=== PATIENT | male | born 1940 | race Caucasian/White ===

== ENCOUNTER 2016-12-14 13:49 | Inpatient (IN) | payer MEDICARE, MEDICAID ==
[~2016-12-14] VITALS: Ht 182.9 cm; Wt 57.8 kg
--- NOTE | 2016-12-14 14:00 | NUR ---
Recieved patient to ed bed 03, patient was bb orivate ems from [facility] for s/p unwitnessed fall. Per report, pt was found on the floor. Pt is a chronic trach/vent dependent. unknown complaints. pt is non verbal, unable to provide informations. Placed on cardiac and pox monitor. will continue to monitor
--- NOTE | 2016-12-14 14:13 | NUR ---
Dr. Chandra at bedside for evaluation, patient is not talking, unable to get informations from the patient, pen and paper provided, questions written in kazakh and samoan and showed to the patient, patient has no response.
--- NOTE | 2016-12-14 14:17 | NUR ---
Called [facility] and spoke to Nathan RN, per staff patient is confused w/ h/o alzheimer's dse, dementia, non verbal, unable to communicate, will do eye tracking but that's it. Dr. Chandra notified.
[2016-12-14 14:19] VITALS: BP 110/72
--- NOTE | 2016-12-14 14:22 | NUR ---
RT NOTE PT PLACED ON VENT ON SETTINGS ENDORSED BY TRANSPORT RT AC 14 500 +5 40%. AMBU BAG AT BEDSIDE. ALARMS SET PER PROTOCOL AND AUDIBLE. VENT PLUGGED IN TO RED OUTLET. PT APPEARS STABLE. WILL CONTINUE TO MONITOR. Addendum: 12/14/16 at 1424 by CHELA SANABRIA RT Amended: Links added.
--- NOTE | 2016-12-14 15:05 | NUR ---
CXR in progress at bedside.
[2016-12-14 15:10] LABS: BASOPHILS % (AUTO) 0.3 % (0.0-2.0); EOSINOPHILS # (AUTO) 0.1 /CMM (0.0-0.7); EOSINOPHILS % (AUTO) 1.1 % (0.0-6.0); HEMATOCRIT 31 % (39-51); HEMOGLOBIN 9.7 g/dL (13.5-17.5); LYMPHOCYTES # (AUTO) 1.3 /CMM (0.8-4.8); LYMPHOCYTES % (AUTO) 13.6 % (20.0-44.0); MEAN CORPUSCULAR HEMOGLOBIN 29 PG (26.0-33.0); MEAN CORPUSCULAR HGB CONC 32 g/dl (31.0-36.0); MEAN CORPUSCULAR VOLUME 90 fL (80-96); MONOCYTES # (AUTO) 0.8 /CMM (0.1-1.30); NEUTROPHILS # (AUTO) 7.3 /CMM (1.8-8.9); PLATELET COUNT (AUTO) 294 /CMM (150-450); RDW COEFFICIENT OF VARIATION 23.6 (11.5-15.0); RED BLOOD CELL COUNT(AUTO) 3.38 MIL/uL (4.5-6.0); WHITE BLOOD COUNT (AUTO) 9.5 K/uL (4.3-11.0)
[2016-12-14 15:20] LABS: CALCIUM, SERUM 8.4 mg/dL (8.5-10.1); CREATININE 0.9 mg/dL (0.6-1.3); POTASSIUM 4.6 mmol/L (3.5-5.1)
[2016-12-14 15:24] LABS: INR 1.12 (0.87-1.13); PROTHROMBIN TIME 11.8 SECS (9.5-12.7)
[2016-12-14 15:26] LABS: ALBUMIN 2.4 g/dL (3.4-5.0); BILIRUBIN,DIRECT 0.2 mg/dL (0.0-0.2); BILIRUBIN,TOTAL 0.5 mg/dL (0.2-1.0); TOTAL PROTEIN, SERUM 5.9 g/dL (6.4-8.2)
[2016-12-14 15:40] LABS: TROPONIN I 0.075 ng/mL (0.00-0.056)
[2016-12-14 16:02] LABS: LACTIC ACID 1.6 mmol/L (0.4-2.0)
[2016-12-14 16:15] VITALS: BP 144/78
[2016-12-14 16:31] LABS: ABG BASE EXCESS 1.9 mmol/L; ABG OXYGEN SATURATION 98.1 % (92.0-98.5); ABG PCO2 37.5 mmHg (35.0-45.0); ABG PH 7.456 (7.350-7.450); ABG PO2 148.9 mmHg (75.0-100.0); ABG TOTAL HEMOGLOBIN 9.5 G/dL (13.5-18.0); AaDO2 93.2 mmHg; COHb 0.6 % (0.5-1.5); MetHb 0.8 % (0.0-1.5); O2Hb 96.7 % (94.0-97.0); PEEP,BG 5 cm H2O; SITE, ABG Right Radial; VENT MODE, BG AC 14 500 +5 40%; VT, ABG 500 mL
[2016-12-14] MEDS ORDERED: ASPIRIN 325 MG TABLET PO ONE (17:00)
--- NOTE | 2016-12-14 17:23 | NUR ---
tele [phone]
[2016-12-14] MEDS ORDERED: ASPIRIN 325 MG TABLET ONE (17:36)
--- NOTE | 2016-12-14 17:37 | NUR ---
Jaylyn will call back in 10 minutes.
--- NOTE | 2016-12-14 17:55 | NUR ---
Report given to Jaylyn PATTERSON for cont of care
[2016-12-14] MEDS ORDERED: HYDR-3326 GT (18:35)
[2016-12-14] MEDS ORDERED: CRAN3875 GT (18:35)
[2016-12-14] MEDS ORDERED: ACET-2070 GT (18:35)
[2016-12-14] MEDS ORDERED: BISA10SU8 RC (18:39)
[2016-12-14] MEDS ORDERED: MAGN400O6 GT (18:39)
[2016-12-14] MEDS ORDERED: NA P133E RC (18:39)
[2016-12-14] MEDS ORDERED: DOCU50LI GT (18:39)
[2016-12-14 18:40] VITALS: BP 113/68
--- NOTE | 2016-12-14 18:40 | NUR ---
RN NOTES RECEIVED PATIENT FROM ER, ON [facility] VENT WITH BREATHING NORMAL, EVEN AND UNLABORED. NO SOB NOTED. NO ACUTE DISTRESS NOTED. VENT SETTING REVIEWED AND VERIFIED. TOLERATED WELL. TELE MONITOR REVEALS CONTROLLED A-FIB, HR=72. IV R HAND 20G IS PATENT AND INTACT, NO INFILTRATION NOTED. GT IS INTACT AND CLAMPED. BOWEL SOUND PRESENT. PULSES PRESENT. KEPT CLEAN, DRY AND COMFORTABLE. ALL NEEDS ATTENDED. SAFETY MEASURE OBSERVED. CALL LIGHT WITH IN REACH. WILL CONT TO MONITOR.
[2016-12-14] MEDS ORDERED: LEVE500S GT (18:46)
[2016-12-14] MEDS ORDERED: ENOX30DI5 SQ (18:46)
[2016-12-14] MEDS ORDERED: FAMO20TA8 GT (18:46)
[2016-12-14] MEDS ORDERED: CARV12.52 GT (18:46)
[2016-12-14] MEDS ORDERED: NUT.237L30 GT (18:46)
[2016-12-14] MEDS ORDERED: ASPI81TA2 GT (18:46)
[2016-12-14] MEDS ORDERED: PRAV10TA40 GT (18:51)
[2016-12-14] MEDS ORDERED: MEMA10TA GT (18:51)
[2016-12-14] MEDS ORDERED: SPIR25TA4 GT (18:51)
--- NOTE | 2016-12-14 19:30 | NUR ---
FIRE SAFETY MANAGER INITIAL NOTE RECEIVED REPORT FROM RUY PATTERSON. PT IN BED CHRONIC VENT TRACH, TOLERATING CURRENT VENT SETTINGS. PT OPENS EYES, ABLE TO NOD HEAD WHEN SPOKEN TO IN JAPANESE BUT UNABLE TO FOLLOW COMMANDS. PT IS RESTRAINED, DUE TO PULLING IV'S AND LINES. LUNG SOUNDS CLEAR AT UPPER BASES AND DIMINISHED AT LOWER BASES. BOWEL SOUNDS PRESENT, GT INTACT AND CLAMPED. INCONTINENT. PULSES PRESENT IN ALL EXTREMITIES. IV PATENT AND INTACT. BED IN LOW LOCKED POSITION. WILL CONTINUE TO MONITOR. MEDICATION RECONCILIATION UPDATED WITH SNF PAPERWORK, FAXED TO PHARMACY.
[2016-12-14] MEDS ORDERED: OXCA150T5 GT (19:38)
[2016-12-14] MEDS ORDERED: OXCA300T4 GT (19:38)
[2016-12-14 20:00] VITALS: BP 103/58
[2016-12-14] MEDS ORDERED: MAGNESIUM HYDROXIDE 30 ML UDC GT PRN (20:30)
[2016-12-14] MEDS ORDERED: BISACODYL SUPP (10 MG) 10 MG/SUPP.RECT SUPP.RECT RC PRN (20:30)
[2016-12-14] MEDS ORDERED: NA PHOS,M-B/NA PHOS,DI-BA 1 EA ENEMA RC PRN (20:30)
[2016-12-14] MEDS ORDERED: CARV6.25 PO (21:27)
[2016-12-14] MEDS ORDERED: Medication Not On Formulary EA (Pravastatin Sodium 10 MG) GT SCH (22:00)
[2016-12-14] MEDS: LEVETIRACETAM SOL (5 ML) 100 MG/ML UDC GT SCH (22:10)
[2016-12-14] MEDS: ATORVASTATIN 10 MG TABLET PO SCH (22:10)
[2016-12-14] MEDS: GLYTROL 1,000 ML BAG GT PRN (23:41)
[2016-12-15] VITALS (7 sets, daily range): BP systolic 103–114; BP diastolic 58–69
[2016-12-15 06:27] LABS: BASOPHILS % (AUTO) 0.2 % (0.0-2.0); EOSINOPHILS % (AUTO) 0.4 % (0.0-6.0); HEMATOCRIT 29 % (39-51); HEMOGLOBIN 9.1 g/dL (13.5-17.5); LYMPHOCYTES # (AUTO) 1.3 /CMM (0.8-4.8); LYMPHOCYTES % (AUTO) 12.1 % (20.0-44.0); MEAN CORPUSCULAR HEMOGLOBIN 28 PG (26.0-33.0); MEAN CORPUSCULAR HGB CONC 32 g/dl (31.0-36.0); MEAN CORPUSCULAR VOLUME 89 fL (80-96); MONOCYTES % (AUTO) 9.3 % (2.0-12.0); NEUTROPHILS # (AUTO) 8.3 /CMM (1.8-8.9); PLATELET COUNT (AUTO) 350 /CMM (150-450); RDW COEFFICIENT OF VARIATION 24.3 (11.5-15.0); RED BLOOD CELL COUNT(AUTO) 3.21 MIL/uL (4.5-6.0); WHITE BLOOD COUNT (AUTO) 10.7 K/uL (4.3-11.0)
[2016-12-15 06:45] LABS: CALCIUM, SERUM 8.7 mg/dL (8.5-10.1); CREATININE 0.8 mg/dL (0.6-1.3); POTASSIUM 4.6 mmol/L (3.5-5.1)
--- NOTE | 2016-12-15 07:30 | NUR ---
NUT STEAMER INITIAL NOTES RECEIVED PT AND REPORT FROM PM NURSE, PT IN BED, ON [facility] VENT SETTINGS ORDERED BY SAT ABOVE 97%, NO SOB OR DISTRESS NOTED, A&O X1, SOFT BILATERAL WRIST RESTRAINTS INTACT, ON TELE MON A-FIB WITH HR 73 CONTROLLED, ON GTUBE FEEDING GLYTROL @ 50 CC/HR, NO RESIDUAL NOTED, RT HAND 20 G INTACT NO INFILTRATION OR INFECTION, ALL SAFETY MEASURES INITIATED, SIDE RAILS X2, BED LOW AND LOCKED, CALL LIGHT WITHIN REACH, WILL CONTINUE TO MONITOR.
--- NOTE | 2016-12-15 08:27 | NUR ---
RT PATIENT REC'D TRACHED ON [facility] VENT WITH SETTINGS SET PER MD ORDER TOLERATED WELL. PATIENT NON RESPONSIVE AND APPEARS COMFORTABLE. VENT ALARMS SET + AUDIBLE. SX'D WITH SMALL AMT PALE SEMITHICK SECRETIONS. B/S COARSE. AMBU BAG AT HOB Addendum: 12/15/16 at 0827 by YAHIR DOLL RT Amended: Links added.
[2016-12-15] MEDS ORDERED: OXCARBAZEPINE 150 MG TABLET GT SCH ×2 (09:00)
[2016-12-15] MEDS: DOCUSATE SODIUM LIQ 100 MG/10 ML UDC GT SCH (09:04)
[2016-12-15] MEDS: LEVETIRACETAM SOL (5 ML) 100 MG/ML UDC GT SCH ×2 (09:04→21:20)
[2016-12-15] MEDS: ASPIRIN 81 MG TAB.CHEW GT SCH (09:04)
[2016-12-15] MEDS: MEMANTINE HCL 5 MG TABLET GT SCH ×2 (09:04→17:28)
[2016-12-15] MEDS: SPIRONOLACTONE 25 MG TABLET GT SCH (09:05)
[2016-12-15] MEDS: ENOXAPARIN SODIUM 30 MG/0.3 ML DISP.SYRIN SQ SCH (09:05)
[2016-12-15] MEDS: FAMOTIDINE (20 MG) 20 MG TABLET GT SCH ×2 (09:05→17:28)
[2016-12-15] MEDS: Z GUARD REMEDY 2 OZ OINT TP SCH (09:11)
--- NOTE | 2016-12-15 09:30 | NUR ---
DAMAGE ASSESSOR NOTES SPOKE WITH MD DR REGALADO AND HE STATED NOT GIVE TRILEPTAL NEITHER ONE, MEDICATION ERROR, WILL NOT GIVE MEDICATION.
--- NOTE | 2016-12-15 21:08 | NUR ---
RN INITIAL NOTE RECEIVED PT IN BED. PT SHOW NO SIGNS OF DISTRESS, OR DISCOMFORT. PT IS SLEEPING, BUT IS AROUSABLE, OPENING EYES INTERMITTENTLY. PT IS VENTED, TRACH PORTEX #8, TOLERATING CURRENT VENT SETTINGS WELL AT AC:14 TV:500 FIO2 40% AND PEEP 5. PT IS RESTRAINED, DUE TO PULLING IV'S AND LINES. DIMINISHED AT LOWER BASES. BOWEL SOUNDS PRESENT, GT INTACT/PATENT W/ NO RESIDUAL, RUNNING AT 60ML/HR. IV PATENT AND INTACT. BED IN LOW LOCKED POSITION.CALL LIGHT IS WITHIN EASY REACH. WILL CONTINUE TO MONITOR AND FOLLOW MD ORDERS.
[2016-12-15] MEDS: CARVEDILOL 3.125 MG TABLET GT SCH (21:19)
[2016-12-15] MEDS: ATORVASTATIN 10 MG TABLET PO SCH (21:19)
[2016-12-16] VITALS (7 sets, daily range): BP systolic 90–119; BP diastolic 51–69
[2016-12-16] MEDS ORDERED: GLYTROL 1,000 ML BAG GT PRN (03:00)
[2016-12-16] MEDS: GLYTROL 1,000 ML BAG GT PRN ×2 (03:00→22:01)
--- NOTE | 2016-12-16 06:12 | NUR ---
RN CLOSING NOTES: PT IS STABLE W/NO CHANGES THROUGHOUT THE SHIFT. PT TOLERATING FEEDING WELL, NO RESIDUAL. PT TOLERATED VENT AND SETTINGS WELL. TELE READING V-PACING IN 70'S. NO SIGN OR SYMPTOMS OF DISCOMFORT OR DISTRESS DURING SHIFT. MD ORDERS FOLLOWED, PT TURNED AND REPOSITIONED Q2H AND PRN. MAINTAINED SAFETY AND COMFORT MEASURES. PT IS CURRENTLY RESTING COMFORTABLE WITH CALL LIGHT IN EASY REACH. WILL ENDORSE TO NEXT SHIFT FOR PATIENT TRISH.
--- NOTE | 2016-12-16 07:20 | NUR ---
RN INITIAL NOTES: Rec'd pt asleep on bed, HOB elevated, not in any distress. Pt on MV via Trache Portex 8 w/ ff settings: AC 14, TV 500, FiO2 40%, PEEP 5. On telemonitor, V-pacing at 70's. Has R hand G20, SL, flushed, patent, C/D/I, no signs of infection/ infiltration noted. On cont GT feeding Glytrol at 60 cc/hr, patent & intact. Will turn & reposition, offload heels as protocol. Provided comfort & safety measures. Call light placed w/in reached. Bed kept low & in locked position. Will continue to monitor.
[2016-12-16] MEDS ORDERED: HYDROGEL DRESSING 90 GM TUBE TP PRN (08:30)
--- NOTE | 2016-12-16 08:33 | NUR ---
WOUND CARE CONSULT: PT PRESENTS WITH SACRAL SCARRING, RT LOWER LEG ULCERS, PRESENT ON ADMISSION PER SENDING FACILITY DOCUMENTATION. PT ALSO NOTED TO BE INCONTINENT WITH PERIANAL AND BUTTOCKS EXCORIATION. PT VENT-DEPENDENT. PT NOTED TO BE MOVING ABOUT IN BED AND MOVES LOWER EXTREMITIES FREQUENTLY. PT TO BE PLACED ON TASHA ISOFLEX LOW AIRLOSS BED. RECOMMEND SURGICAL CONSULT FOR RT LOWER LEG ULCERS. ALL SKIN PROTECTION AND WOUND RECOMMENDATIONS DISCUSSED WITH NURSING STAFF. IN AGREEMENT WITH PLAN OF CARE. Addendum: 12/16/16 at 0837 by CLAUDINE HOPE WNDNU Amended: Links added.
[2016-12-16] MEDS: SPIRONOLACTONE 25 MG TABLET GT SCH (08:51)
[2016-12-16] MEDS: CARVEDILOL 3.125 MG TABLET GT SCH ×2 (08:52→20:34)
[2016-12-16] MEDS: ASPIRIN 81 MG TAB.CHEW GT SCH (08:52)
[2016-12-16] MEDS: DOCUSATE SODIUM LIQ 100 MG/10 ML UDC GT SCH (08:52)
[2016-12-16] MEDS: LEVETIRACETAM SOL (5 ML) 100 MG/ML UDC GT SCH ×2 (08:52→20:33)
[2016-12-16] MEDS: BENAZEPRIL HCL 10 MG TABLET GT SCH (08:53)
[2016-12-16] MEDS: FUROSEMIDE 20 MG/2 ML VIAL IV SCH (08:53)
[2016-12-16] MEDS: FAMOTIDINE (20 MG) 20 MG TABLET GT SCH ×2 (08:53→17:42)
[2016-12-16] MEDS: ENOXAPARIN SODIUM 30 MG/0.3 ML DISP.SYRIN SQ SCH (08:54)
[2016-12-16] MEDS: Z GUARD REMEDY 2 OZ OINT TP SCH (08:55)
[2016-12-16] MEDS: MEMANTINE HCL 5 MG TABLET GT SCH ×2 (08:57→17:42)
[2016-12-16] MEDS: HYDROGEL DRESSING 90 GM TUBE TP SCH (09:56)
--- NOTE | 2016-12-16 11:30 | NUR ---
RN NOTES: Pt was placed on Constantino Isoflex Low Airloss bed.
--- NOTE | 2016-12-16 14:34 | NUR ---
RN NOTES: Seen and examined by Dr. Sorenson with orders noted and carried out. For CBC, BMP, Mg+ and Phosphorous in am. Keppra 1gm BID.
--- NOTE | 2016-12-16 14:43 | NUR ---
RN NOTES: As per Dr. Sorenson for Surgical consult with Dr. West and team for right lower leg ulcer-informed.
[2016-12-16] MEDS ORDERED: FUROSEMIDE 40 MG/4 ML VIAL IV ONE (15:30)
--- NOTE | 2016-12-16 18:17 | NUR ---
RN CLOSING NOTES: Pt remained stable, not in any distress. MV settings tolerated well, no desaturation noted. Suctioned secretions as needed. R hand G20 SL, patent, C/D/I, w/ no signs of infection noted. GT feeding tolerated well, no residual. Wound care done. Turned & repositioned, offloading of heels done. Bed kept low & in locked position. Endorsed to PM RN for TRISH.
--- NOTE | 2016-12-16 20:27 | NUR ---
RN:TD: PT ATTEMPTING TO REMOVE LINES AND IS TRYING TO GET OUT OF BED DESPITE EDUCATION REGARDING SAFETY AND BILATERAL SOFT WRIST RESTRAINTS. RESTRAINTS PLACED ON SECURELY. PT KICKED STAFF MEMBER WHILE PERFORMING BED BATH. PT IS HIGH RISK FOR FALL AND INJURY TO SELF AND OTHER STAFF. WILL CONTINUE TO MONITOR CLOSELY. FALL AND ASPIRATION PRECAUTIONS IN PLACE.
[2016-12-16] MEDS: ATORVASTATIN 10 MG TABLET PO SCH (21:11)
[2016-12-17] VITALS (9 sets, daily range): BP systolic 91–126; BP diastolic 57–77
[2016-12-17 06:33] LABS: BASOPHILS % (AUTO) 0.3 % (0.0-2.0); EOSINOPHILS # (AUTO) 0.1 /CMM (0.0-0.7); EOSINOPHILS % (AUTO) 1.1 % (0.0-6.0); HEMATOCRIT 30 % (39-51); HEMOGLOBIN 9.3 g/dL (13.5-17.5); LYMPHOCYTES # (AUTO) 1.3 /CMM (0.8-4.8); LYMPHOCYTES % (AUTO) 13.1 % (20.0-44.0); MEAN CORPUSCULAR HEMOGLOBIN 28 PG (26.0-33.0); MEAN CORPUSCULAR HGB CONC 31 g/dl (31.0-36.0); MEAN CORPUSCULAR VOLUME 89 fL (80-96); MONOCYTES % (AUTO) 10.5 % (2.0-12.0); NEUTROPHILS # (AUTO) 7.3 /CMM (1.8-8.9); PLATELET COUNT (AUTO) 339 /CMM (150-450); RDW COEFFICIENT OF VARIATION 23.4 (11.5-15.0); RED BLOOD CELL COUNT(AUTO) 3.34 MIL/uL (4.5-6.0); WHITE BLOOD COUNT (AUTO) 9.7 K/uL (4.3-11.0)
[2016-12-17 06:53] LABS: CALCIUM, SERUM 8.5 mg/dL (8.5-10.1); CREATININE 0.8 mg/dL (0.6-1.3); MAGNESIUM 1.9 mg/dL (1.8-2.4); POTASSIUM 4.1 mmol/L (3.5-5.1)
--- NOTE | 2016-12-17 07:00 | NUR ---
RN NOTES RECEIVED PT ON BED , NONVERBAL , VENT DEPENDENT , TRACH CARE DONE, TOLERATING CURRENT SETTING WELL, ON TELE V PACING , HOB ELEVATED , R HAND IV IS OUT , WILL START NEW ONE , GLYTROL AT 60CC/HR RUNNING VIA GT , PT TOLERATING WELL, SR UP x3, LICO WRIST RESTRAIN ON FOR PT SAFETY ,PT IS RESTLESS AND TRYING TO PULL LINES OUT , BED LOCKED AND IN LOW POSITION , WILL CONTINUE TO MONITOR PT CLOSELY AND NOTIFY MD FOR ANY SIGNIFICANT CHANGES
[2016-12-17] MEDS: MEMANTINE HCL 5 MG TABLET GT SCH ×2 (08:34→16:01)
[2016-12-17] MEDS: FAMOTIDINE (20 MG) 20 MG TABLET GT SCH ×2 (08:34→16:01)
[2016-12-17] MEDS: LEVETIRACETAM SOL (5 ML) 100 MG/ML UDC GT SCH ×2 (08:34→21:22)
[2016-12-17] MEDS: ASPIRIN 81 MG TAB.CHEW GT SCH (08:34)
[2016-12-17] MEDS: DOCUSATE SODIUM LIQ 100 MG/10 ML UDC GT SCH (08:34)
[2016-12-17] MEDS: BENAZEPRIL HCL 10 MG TABLET GT SCH (08:35)
[2016-12-17] MEDS: SPIRONOLACTONE 25 MG TABLET GT SCH (08:35)
[2016-12-17] MEDS: CARVEDILOL 3.125 MG TABLET GT SCH ×2 (08:36→21:23)
[2016-12-17] MEDS: FUROSEMIDE 20 MG/2 ML VIAL IV SCH (08:38)
[2016-12-17] MEDS: ENOXAPARIN SODIUM 30 MG/0.3 ML DISP.SYRIN SQ SCH (08:42)
[2016-12-17] MEDS: HYDROGEL DRESSING 90 GM TUBE TP SCH (08:44)
[2016-12-17] MEDS: Z GUARD REMEDY 2 OZ OINT TP SCH (08:44)
--- NOTE | 2016-12-17 13:49 | NUR ---
RN NOTES PT ENDORSED TO TOM CHARGE NURSE FOR PT CARE CONTINUITY
--- NOTE | 2016-12-17 14:04 | NUR ---
PT. RECEIVED FROM NEETU PT. ASLEEP NO ACUTE DISTRESS.
--- NOTE | 2016-12-17 15:56 | NUR ---
pt. agitated trying to pull gtube,kept bilateral soft wrist restraint for safety.
[2016-12-17] MEDS: NEOMY SULF/BACITRAC ZN/POLY 15 GM TUBE TP SCH (16:01)
[2016-12-17] MEDS: HALOPERIDOL 1 MG TABLET PEG PRN (16:04)
--- NOTE | 2016-12-17 16:04 | NUR ---
prn haldol given via gtube .,doppler ultrasound done awaits result.
--- NOTE | 2016-12-17 17:00 | NUR ---
PT. ASLEEP,NO ACUTE DISTRESS STILL WAITING FOR DOPPLER RESULT.
[2016-12-17] MEDS: GLYTROL 1,000 ML BAG GT PRN (17:49)
--- NOTE | 2016-12-17 18:04 | NUR ---
restarted feeding held for one hour during doppler ultrasound.still waiting for doppler reults.
--- NOTE | 2016-12-17 20:34 | NUR ---
PT TRACH ON VENT WITH PTX 8 ON AC MODE. PT AWAKE TOLERATING VENT SETTINGS. SX'D FOR SML AMT OF THICK WHITE SECRETIONS. BS IS COARSE, RHONCHI BILAT. O2 SAT 100%. NO RESP DISTRESS NOTED. VENT ALARMS SET AND AUDIBLE. AMBU BAG AT BEDSIDE. VENT PLUGGED INTO RED OUTLET. WILL CONTINUE TO MONITOR. Addendum: 12/17/16 at 2036 by RADHIKA POWERS RT Amended: Links added.
[2016-12-17] MEDS: ATORVASTATIN 10 MG TABLET PO SCH (21:22)
[2016-12-18] VITALS: BP_SYST 102; BP_SYST 103; BP_DIAS 66; BP_DIAS 69
[2016-12-18 04:00] VITALS: BP 114/57
--- NOTE | 2016-12-18 07:15 | NUR ---
RN CARLOS INITIAL NOTES RECEIVED REPORT AND PT FROM PM NURSE, PT RESTING IN BED, A&O X2 MOUTHS WORDS, ON MECH VENT SETTINGS ORDERED BY SAT ABOVE 97% NO SOB, ON TELE MON VPAC 75, ON BILT WRIST RESTRAINTS, GTUBE FEEDING GLYTROL @ 60 CC/HR NO RESIDUAL NOTED, LT HAND 22G IV INTACT NO S.S OF INFILTRATION, ALL NEEDS MET, ALL SAFETY MEASURES INITIATED, SIDE RAILS X2, BED LOW AND LOCKED, CALL LIGHT WITHIN REACH, WILL CONTINUE TO MONITOR.
[2016-12-18 08:00] VITALS: BP 96/65
[2016-12-18] MEDS: SPIRONOLACTONE 25 MG TABLET GT SCH (08:34)
[2016-12-18] MEDS: CARVEDILOL 3.125 MG TABLET GT SCH ×2 (08:34→21:00)
[2016-12-18] MEDS: FUROSEMIDE 20 MG/2 ML VIAL IV SCH (08:35)
[2016-12-18] MEDS: BENAZEPRIL HCL 10 MG TABLET GT SCH (08:35)
[2016-12-18] MEDS: ASPIRIN 81 MG TAB.CHEW GT SCH (08:57)
[2016-12-18] MEDS: FAMOTIDINE (20 MG) 20 MG TABLET GT SCH ×2 (08:57→16:48)
[2016-12-18] MEDS: MEMANTINE HCL 5 MG TABLET GT SCH ×2 (08:57→16:48)
[2016-12-18] MEDS: LEVETIRACETAM SOL (5 ML) 100 MG/ML UDC GT SCH ×2 (08:57→21:34)
[2016-12-18] MEDS: DOCUSATE SODIUM LIQ 100 MG/10 ML UDC GT SCH (08:57)
[2016-12-18] MEDS: ENOXAPARIN SODIUM 30 MG/0.3 ML DISP.SYRIN SQ SCH (08:58)
[2016-12-18] MEDS: Z GUARD REMEDY 2 OZ OINT TP SCH (08:59)
[2016-12-18] MEDS: NEOMY SULF/BACITRAC ZN/POLY 15 GM TUBE TP SCH (08:59)
[2016-12-18 12:00] VITALS: BP 90/58
[2016-12-18 16:00] VITALS: BP 106/65
[2016-12-18] MEDS: GLYTROL 1,000 ML BAG GT PRN (16:48)
[2016-12-18] MEDS: HALOPERIDOL 1 MG TABLET PEG PRN (18:14)
--- NOTE | 2016-12-18 19:30 | NUR ---
RN INITIAL NOTES RECEIVED PT AWAKE ON BED, NON-VERBAL, RESTLESS. ON VENT, PORTEX 8, AC 14, TV 500, 40% FIO2, PEEP 5, NO S/S OF RESP DISTRESS. CURRENTLY VPACING ON THE MONITOR, HR 70'S. ON DIAPERS ONLY. ON GLYTROL FEEDING @ 60MLS/HR, NO RESIDUALS. LEFT HAND 22G IS FLUSHED AND PATENT, NO S/S OF INFILTRATION/INFECTION, DRESSING CDI. BED LOW AND LOCKED, SIDERAILS UP, BILATERAL SOFT WRIST RESTRAINTS IN PLACE. WILL MONITOR
[2016-12-18 20:00] VITALS: BP 102/61
[2016-12-18] MEDS: ATORVASTATIN 10 MG TABLET PO SCH (21:34)
[2016-12-19] VITALS: BP 119/79
[2016-12-19 04:00] VITALS: BP_SYST 119; BP_SYST 92; BP_DIAS 57; BP_DIAS 79
[2016-12-19] MEDS: HALOPERIDOL 1 MG TABLET PEG PRN ×3 (05:37→20:06)
--- NOTE | 2016-12-19 06:30 | NUR ---
RN CLOSING NOTES PT REMAINS STABLE OF THE MOMENT. ALL DUE MEDS GIVEN, AM CARE PROVIDED. WILL ENDORSE CONTINUITY OF CARE TO AM RN
--- NOTE | 2016-12-19 07:40 | NUR ---
RN NOTES RECEIVED PT RESTING ON BED, NON-VERBAL, RESTLESS. ON VENT, PORTEX 8, AC 14, TV 500, 40% FIO2, PEEP 5, NO S/S OF RESP DISTRESS. SUCTIONED FOR AIRWAY CLEARANCE. CURRENTLY VPACING ON THE MONITOR. ON GLYTROL FEEDING @ 60MLS/HR, NO RESIDUALS. LEFT HAND 22G SL FLUSHED WITH NS, PATENT, NO S/S OF INFILTRATION/INFECTION, DRESSING CDI. BED LOW AND LOCKED, SIDERAILS UP, BILATERAL SOFT WRIST RESTRAINTS IN PLACE. RELEASED AND CHECKED FOR CIRCULATION. KEPT PT COMFORTABLE, FREQUENT VISUAL CHECKS. CALL LIGHT WITHIN REACH, WILL MONITOR
[2016-12-19 08:00] VITALS: BP 95/52
[2016-12-19] MEDS: DOCUSATE SODIUM LIQ 100 MG/10 ML UDC GT SCH (09:31)
[2016-12-19] MEDS: ASPIRIN 81 MG TAB.CHEW GT SCH (09:32)
[2016-12-19] MEDS: ENOXAPARIN SODIUM 30 MG/0.3 ML DISP.SYRIN SQ SCH (09:32)
[2016-12-19] MEDS: FAMOTIDINE (20 MG) 20 MG TABLET GT SCH ×2 (09:32→16:08)
[2016-12-19] MEDS: MEMANTINE HCL 5 MG TABLET GT SCH ×2 (09:32→16:08)
[2016-12-19] MEDS: LEVETIRACETAM SOL (5 ML) 100 MG/ML UDC GT SCH ×2 (09:32→21:39)
[2016-12-19] MEDS: SPIRONOLACTONE 25 MG TABLET GT SCH (09:32)
[2016-12-19] MEDS: NEOMY SULF/BACITRAC ZN/POLY 15 GM TUBE TP SCH (09:33)
[2016-12-19] MEDS: Z GUARD REMEDY 2 OZ OINT TP SCH (09:33)
[2016-12-19] MEDS: BENAZEPRIL HCL 10 MG TABLET GT SCH (09:34)
[2016-12-19] MEDS: CARVEDILOL 3.125 MG TABLET GT SCH ×2 (09:35→21:39)
[2016-12-19 12:00] VITALS: BP_SYST 81; BP_SYST 87; BP_DIAS 44; BP_DIAS 56
[2016-12-19] MEDS: GLYTROL 1,000 ML BAG GT PRN (13:59)
--- NOTE | 2016-12-19 14:00 | NUR ---
RN NOTES RECEIVED PHOE CALL FROM MARLON RAMIREZ PT PLACED ON DROPLET ISOLATION FOR POSITIVE SPUTUM CX MRSA AND ESBL. RELAYED TO FABRICIO, NO NEW ORDER AT THIS TIME.
[2016-12-19 16:00] VITALS: BP 102/60
--- NOTE | 2016-12-19 19:30 | NUR ---
PAN RECLAIM PROCESSOR OPENING NOTES: PATIENT IN BED, APPEARS RESTLESS, UNABLE TO FOLLOW COMMAND. ON [facility] VENTILATION WITH THE FF SETTINGS: AC: 14, TV: 500, FIO2: 40%, PEEP: 5, WITH TRACHE TUBE OF PORTEX #8. PATIENT HAS G TUBE FEEDING OF GLYTROL RUNNIGN AT 60 ML/HR. PATIENT TOLERATING FEEDING WELL, NO RESIDUAL NOTED AT THIS TIME. PIV ACCESS OVER L HAND G 22 INTACT AND PATENT TO FLUSH. BILATERAL SOFT WRIST RESTRAINTS APPLIED ON PATIENT FOR ATTEMPTING TO PULL OUT TUBES/ LINES. ASSESSED LICO WRISTS/ FOREARMS FOR SIGNS OF SKIN BREAKDOWN. TURNED AND REPOSITIONED PATIENT. SUCTIONED PRN. WILL CONT TO MONITOR.
[2016-12-19 20:00] VITALS: BP 126/73
--- NOTE | 2016-12-19 20:10 | NUR ---
RN NOTES: PATIENT APPEARS VERY RESTLESS EVEN WITH RESTRAINTS. ADMINISTERED HALDOL 0.5 MG PER GT. PROVIDED FOR SAFETY. BED AT LOWEST AND LOCKED POSITION. WILL CONT TO MONITOR.
--- NOTE | 2016-12-19 20:59 | NUR ---
pt received on vent via trach, settings as charted ambu bag at bedside alarms set and audible suctioned a small amount of thin clear secretions breath sounds equal bilateral coarse pt receiving no breathing tx at this time Addendum: 12/19/16 at 2100 by NAYELI GALEAS RT Amended: Links added.
[2016-12-19] MEDS: ATORVASTATIN 10 MG TABLET PO SCH (21:39)
[2016-12-20] VITALS (9 sets, daily range): BP systolic 88–115; BP diastolic 49–61
[2016-12-20] MEDS: GLYTROL 1,000 ML BAG GT PRN (05:23)
--- NOTE | 2016-12-20 06:52 | NUR ---
MATERIAL CHASER CLOSING NOTES: PATIENT IN BED, DOZES OFF INTERMITTENTLY BUT RESTLESS WHEN AWAKE, UNABLE TO FOLLOW INSTRUCTIONS. ON [facility] VENTILATION WITH THE FF SETTINGS: AC: 14, TV: 500, FIO2: 40% , PEEP: 5. HOB KEPT ELEVATED. MORNING CARE RENDERED. WOUND TREATMENT OVER RLE DONE. TURNED AND REPOSITIONED PATIENT. KEPT BILATERAL WRIST RESTRAINTS PATIENT STILL SEEN TO BE ATTEMPTING TO PULL OF LINES. PIV ACCESS OVER L HAND G 22 INTACT AND PATENT TO FLUSH. ON G TUBE FEEDING WITH GLYTROL AT 60 ML/HR, ABLE TO TOLERATE CONTINUOUS FEEDING WITH NO RESIDUAL. PROVIDED FOR COMFORT AND SAFETY. NO ACUTE CHANGE IN CONDITION NOTED THROUGH SHIFT. WILL ENDORSE TO AM RN FOR TRISH.
[2016-12-20] MEDS: DOCUSATE SODIUM LIQ 100 MG/10 ML UDC GT SCH (08:25)
[2016-12-20] MEDS: MEMANTINE HCL 5 MG TABLET GT SCH ×2 (08:25→17:11)
[2016-12-20] MEDS: LEVETIRACETAM SOL (5 ML) 100 MG/ML UDC GT SCH ×2 (08:25→21:16)
[2016-12-20] MEDS: SPIRONOLACTONE 25 MG TABLET GT SCH (08:25)
[2016-12-20] MEDS: FAMOTIDINE (20 MG) 20 MG TABLET GT SCH ×2 (08:25→17:11)
[2016-12-20] MEDS: BENAZEPRIL HCL 10 MG TABLET GT SCH (08:26)
[2016-12-20] MEDS: CARVEDILOL 3.125 MG TABLET GT SCH ×2 (08:26→21:00)
[2016-12-20] MEDS: HALOPERIDOL 1 MG TABLET PEG PRN ×2 (08:26→15:23)
[2016-12-20] MEDS: ASPIRIN 81 MG TAB.CHEW GT SCH (08:26)
[2016-12-20] MEDS: ENOXAPARIN SODIUM 30 MG/0.3 ML DISP.SYRIN SQ SCH (08:29)
[2016-12-20] MEDS: NEOMY SULF/BACITRAC ZN/POLY 15 GM TUBE TP SCH (08:30)
[2016-12-20] MEDS: Z GUARD REMEDY 2 OZ OINT TP SCH (08:32)
--- NOTE | 2016-12-20 19:30 | NUR ---
LOG TURNER INITIAL NOTES RECEIVED PATIENT ASLEEP, NON-VERBAL, VENT DEPENDENT. NO RESPIRATORY DISTRESS NOTED. NO S/S OF PAIN OR DISCOMFORT. WITH VENT SETTINGS AC 14, VT 500, FIO2 40%, PEEP 5. TRACH C/D/I. WITH GTF TOLERATING WELL, GT PATENT, INTACT, IN PLACE. ISOLATION PRECAUTIONS OBSERVED. HOB KEPT ELEVATED. SIDE RAILS UP AND LOCKED. BED KEPT AT LOWEST POSITION. CALL LIGHT KEPT WITHIN EASY REACH. WILL CONTINUE TO MONITOR CLOSELY.
[2016-12-20] MEDS: ATORVASTATIN 10 MG TABLET PO SCH (21:16)
--- NOTE | 2016-12-20 21:27 | NUR ---
PT TRACH ON VENT WITH PTX 8 ON AC MODE. PT AWAKE TOLERATING VENT SETTINGS. SX'D FOR SML AMT OF THICK WHITE SECRETIONS. BS IS COARSE, RHONCHI BILAT. O2 SAT 100%. NO RESP DISTRESS NOTED. VENT ALARMS SET AND AUDIBLE. AMBU BAG AT BEDSIDE. VENT PLUGGED INTO RED OUTLET. WILL CONTINUE TO MONITOR. Addendum: 12/20/16 at 2128 by RADHIKA POWERS RT Amended: Links added.
[2016-12-21] VITALS: BP 91/54
[2016-12-21] MEDS: GLYTROL 1,000 ML BAG GT PRN (03:26)
[2016-12-21 04:00] VITALS: BP 99/64
[2016-12-21 06:40] LABS: BASOPHILS % (AUTO) 0.3 % (0.0-2.0); EOSINOPHILS # (AUTO) 0.1 /CMM (0.0-0.7); EOSINOPHILS % (AUTO) 1.4 % (0.0-6.0); HEMATOCRIT 31 % (39-51); HEMOGLOBIN 9.7 g/dL (13.5-17.5); LYMPHOCYTES # (AUTO) 1.2 /CMM (0.8-4.8); LYMPHOCYTES % (AUTO) 15.2 % (20.0-44.0); MEAN CORPUSCULAR HEMOGLOBIN 28 PG (26.0-33.0); MEAN CORPUSCULAR HGB CONC 31 g/dl (31.0-36.0); MEAN CORPUSCULAR VOLUME 90 fL (80-96); MONOCYTES # (AUTO) 0.9 /CMM (0.1-1.30); MONOCYTES % (AUTO) 10.9 % (2.0-12.0); NEUTROPHILS # (AUTO) 5.8 /CMM (1.8-8.9); NEUTROPHILS % (AUTO) 72.2 % (43.0-81.0); PLATELET COUNT (AUTO) 308 /CMM (150-450); RDW COEFFICIENT OF VARIATION 23.4 (11.5-15.0); RED BLOOD CELL COUNT(AUTO) 3.48 MIL/uL (4.5-6.0)
[2016-12-21 07:12] LABS: CALCIUM, SERUM 8.5 mg/dL (8.5-10.1); CREATININE 0.8 mg/dL (0.6-1.3); POTASSIUM 4.4 mmol/L (3.5-5.1)
--- NOTE | 2016-12-21 07:12 | NUR ---
MACHINE FITTER CLOSING NOTES NO SIGNIFICANT CHANGES OVERNIGHT. NO S/S OF PAIN OR DISCOMFORT. NO RESPIRATORY DISTRESS NOTED. TOLERATING CURRENT VENT SETTINGS. TOLERATED GTF. KEPT CLEAN AND DRY. TURNED AND REPOSITIONED Q2 AND PRN. WITH BILATERAL WRIST RESTRAINTS CIRCULATION CHECKED. WOUND TREATMENT ORDERED. TRACH CARE DONE. ISOLATION PRECAUTIONS OBSERVED. HOB KEPT ELEVATED. SIDE RAILS UP AND LOCKED. BED KEPT AT LOWEST POSITION. CONTINUITY OF CARE ENDORSED TO AM NURSE.
[2016-12-21 08:00] VITALS: BP 101/67
[2016-12-21] MEDS: LEVETIRACETAM SOL (5 ML) 100 MG/ML UDC GT SCH (08:36)
[2016-12-21] MEDS: CARVEDILOL 3.125 MG TABLET GT SCH (08:37)
[2016-12-21] MEDS: DOCUSATE SODIUM LIQ 100 MG/10 ML UDC GT SCH (08:37)
[2016-12-21] MEDS: SPIRONOLACTONE 25 MG TABLET GT SCH (08:37)
[2016-12-21] MEDS: FAMOTIDINE (20 MG) 20 MG TABLET GT SCH ×2 (08:37→17:11)
[2016-12-21] MEDS: MEMANTINE HCL 5 MG TABLET GT SCH ×2 (08:38→17:11)
[2016-12-21] MEDS: BENAZEPRIL HCL 10 MG TABLET GT SCH (08:38)
[2016-12-21] MEDS: ASPIRIN 81 MG TAB.CHEW GT SCH (08:38)
[2016-12-21] MEDS: ENOXAPARIN SODIUM 30 MG/0.3 ML DISP.SYRIN SQ SCH (08:44)
[2016-12-21] MEDS: Z GUARD REMEDY 2 OZ OINT TP SCH (09:00)
[2016-12-21] MEDS: NEOMY SULF/BACITRAC ZN/POLY 15 GM TUBE TP SCH (09:00)
[2016-12-21 11:59] VITALS: BP 95/55
[2016-12-21 12:00] VITALS: BP 95/55
[2016-12-21] MEDS: HALOPERIDOL 1 MG TABLET PEG PRN (13:43)
[2016-12-21 16:00] VITALS: BP_SYST 105; BP_SYST 93; BP_DIAS 55
--- NOTE | 2016-12-21 19:38 | NUR ---
pt d/c to [facility].no sudden changes noted.all m.d orders noted and carried out report given to nurse at [facility]
--- NOTE | 2016-12-21 20:00 | NUR ---
TRAILER MECHANIC: PT TRANSFERRED TO [facility] NO ACUTE DISTRESS, NO EVIDENCE OF DISCOMFORT. ALL NEEDS MET. BP=88/50, HR=69, R=18, T=97.5.
[2016-12-22] MEDS ORDERED: APIXABAN 5 MG TABLET GT SCH (09:00)
== END 2016-12-22 00:13 | DRG 280 ==
LOC: ER 13:53 → TELE1 17:41 → TELE-TD 12-15 13:56 → TELE1 12-18 11:14
PROVIDERS: ADMIT Internal Medicine; ATTEND Internal Medicine
PROC: 5A1955Z Respiratory Ventilation, Greater than 96 Consecutive Hours (ICD-10-PCS; principal; 2016-12-14)
DX: I21.4 Non-ST elevation (NSTEMI) myocardial infarction (principal); G93.40 Encephalopathy, unspecified; I50.22 Chronic systolic (congestive) heart failure; J96.11 Chronic respiratory failure with hypoxia; Z99.11 Dependence on respirator [ventilator] status; I69.854 Hemiplegia and hemiparesis following other cerebrovascular disease affecting left non-dominant side; I82.413 Acute embolism and thrombosis of femoral vein, bilateral; I82.513 Chronic embolism and thrombosis of femoral vein, bilateral; I25.10 Atherosclerotic heart disease of native coronary artery without angina pectoris; E11.9 Type 2 diabetes mellitus without complications; E78.5 Hyperlipidemia, unspecified; F02.80 Dementia in other diseases classified elsewhere, unspecified severity, without behavioral disturbance, psychotic disturbance, mood disturbance, and anxiety; G30.9 Alzheimer's disease, unspecified; G40.409 Other generalized epilepsy and epileptic syndromes, not intractable, without status epilepticus; Z93.1 Gastrostomy status; Z95.1 Presence of aortocoronary bypass graft; Z95.810 Presence of automatic (implantable) cardiac defibrillator; Z93.0 Tracheostomy status; D63.8 Anemia in other chronic diseases classified elsewhere; E55.9 Vitamin D deficiency, unspecified; F20.9 Schizophrenia, unspecified; I25.2 Old myocardial infarction; J44.9 Chronic obstructive pulmonary disease, unspecified; Z79.01 Long term (current) use of anticoagulants; Z87.01 Personal history of pneumonia (recurrent); Z88.8 Allergy status to other drugs, medicaments and biological substances; R13.10 Dysphagia, unspecified; L98.9 Disorder of the skin and subcutaneous tissue, unspecified; S81.801A Unspecified open wound, right lower leg, initial encounter; X58.XXXA Exposure to other specified factors, initial encounter; Y93.9 Activity, unspecified; Y92.89 Other specified places as the place of occurrence of the external cause; Y99.9 Unspecified external cause status; I73.9 Peripheral vascular disease, unspecified; E87.70 Fluid overload, unspecified; I11.0 Hypertensive heart disease with heart failure; W18.30XA Fall on same level, unspecified, initial encounter; Z79.899 Other long term (current) drug therapy
CPT/HCPCS: 31720; 36415; 36600; 70450-TC; 71010-TC; 72125-TC; 72192-TC; 80048-TC; 80076-TC; 82803-TC; 83605-TC; 83735-TC; 84100-TC; 84484-TC; 85025-TC; 85730-TC; 87040-TC; 87070-TC; 87186-TC; 93307-TC; 93925-TC; 93970-TC; 94003-TC; 94760-TC; A4606; A6248; A6402; J1650; J1940; J1953; Z7610